=== PATIENT | female | born 1950 | race African-American/Black ===

== ENCOUNTER 2016-10-21 08:01 | Outpatient (CLI) | payer MEDICARE ==
--- NOTE | 2016-10-21 11:28 | Ultrasound Report ---
ULTRASOUND ABDOMEN LIMITED: HISTORY: Right upper quadrant abdominal pain. TECHNIQUE: Transabdominal imaging with color Doppler interrogation. FINDINGS: The liver parenchyma is slightly echogenic suggesting mild fatty infiltration or other nonspecific parenchymal disease. No focal liver mass, surface nodularity or perihepatic ascites. There is [id number] sludge in the gallbladder. No shadowing gallstones or abnormal dilatation. 3 mm gallbladder polyp is also noted. The CBD measures 3.1 mm. Images of the pancreas are within normal limits. The right kidney is normal size, contour and echotexture. No focal renal lesion or hydronephrosis. IMPRESSION: Mild hepatic steatosis. Mild degree of sludge in the gallbladder but no findings suggestive of acute cholecystitis. Small gallbladder polyp.
== END 2016-10-21 08:02 | disposition home or self-care (01) ==
LOC: US 08:01
PROVIDERS: ATTEND Family Medicine
DX: K82.4 Cholesterolosis of gallbladder (principal); K76.0 Fatty (change of) liver, not elsewhere classified; R10.11 Right upper quadrant pain
CPT/HCPCS: 76705

== ENCOUNTER 2017-01-14 07:44 | Outpatient (CLI) | payer MEDICARE ==
--- NOTE | 2017-01-14 09:22 | Mammography Report ---
BILATERAL MAMMOGRAM: FINDINGS: The breast tissue is heterogeneously dense, which could obscure detection of small masses (approximately 50%-75% glandular). No mass, distortion, suspicious calcification, or skin change is seen. There are no significant changes when compared to her prior study in April 2015. CAD was utilized. IMPRESSION: Negative mammogram. There is no mammographic evidence of malignancy. RECOMMENDATION: Follow-up per ACS guidelines. BI-RADS CATEGORY: 1 = Negative ACR BI-RADS MAMMOGRAPHIC CODES: 0 = Needs additional imaging evaluation; 1 = Negative; 2 = Benign; 3 = Probably benign; 4 = Suspicious; 5 = Malignant; 6 = Known biopsy-proven malignancy COMMENT: 1. Dense breast tissue, i.e., adenosis, fibrocystic changes, etc., may obscure an underlying neoplasm. 2. Approximately 10% of cancers are not detected with mammography. 3. A negative mammography report should not delay biopsy if a clinically suspicious mass is present. COMMENT: Patient follow-up letters are generated in [employer].
== END 2017-01-14 07:45 | disposition home or self-care (01) ==
LOC: MAMMO 07:44
PROVIDERS: ATTEND Family Medicine
DX: Z12.31 Encounter for screening mammogram for malignant neoplasm of breast (principal)
CPT/HCPCS: 77067; G0202

== ENCOUNTER 2017-04-22 10:15 | Outpatient (CLI) | payer MEDICARE ==
--- NOTE | 2017-04-22 11:09 | Mammography Report ---
BONE DEXA:04/22/17 10:15:00 CLINICAL: Postmenopausal. COMPARISON: 04/30/15 TECHNIQUE: Two site bone DEXA performed on an Hologic scanner. FINDINGS: The average BMD of the lumbar spine L1-L4 is 0.756g/cm squared with a T-score of -2.6 and a Z-score of -0.7. This compares to 0.718g/cm squared on the last exam and represents a +5.3% change from the previous baseline. The average BMD of the left hip is 0.755g/cm squared with a T-score of -1.5 and a Z-score of -0.2. This compares to 0.746g/cm squared on the last exam and represents a +1.1% change from the previous baseline. IMPRESSION: 1. WHO classification: Osteoporosis with by fracture risk based on both spine and left hip measurements. 2. A modest improvement in spine BMD and a slight improvement in left hip BMD compared to the prior exam.. RECOMMENDATION: Clinical correlation and routine screening. DEFINITIONS: BMD = Bone Mineral Density T-score = BMD related to mean peak bone mass of young adult (mean expressed in Standard Deviation) Z-score = Age matched BMD expressed in SD World Health Organization (WHO) Diagnostic Criteria Normal T-score > -1 SD Osteopenia T-score between -1 and -2.4 SD Osteoporosis T-score -2.5 SD or below NOTE: BMD is not the only risk factor for fracture; also consider factors such as the patient's age, risk of falling, previous osteoporotic fracture, family history of osteoporotic fractures, current smoker, and low body weight. Z-scores are not calculated if >80 years of age.
== END 2017-04-22 10:16 | disposition home or self-care (01) ==
LOC: MAMMO 10:15
PROVIDERS: ATTEND Family Medicine
DX: M81.0 Age-related osteoporosis without current pathological fracture (principal); E11.9 Type 2 diabetes mellitus without complications; I10 Essential (primary) hypertension; Z78.0 Asymptomatic menopausal state
CPT/HCPCS: 77080

== ENCOUNTER 2018-11-18 19:02 | Emergency (ER) | payer MEDICARE ==
[2018-11-18 19:38] VITALS: BP 154/60
[2018-11-18] MEDS ORDERED: TYLENOL PO ONE (20:33)
== END 2018-11-18 21:42 | disposition left against medical advice (07) ==
LOC: ED 19:02
DX: R51 Headache (principal); Z53.21 Procedure and treatment not carried out due to patient leaving prior to being seen by health care provider